=== PATIENT | male | born 1985 | race Caucasian/White ===

== ENCOUNTER 2022-11-22 21:05 | Day surgery (SDC) | payer BC, SELFPAY ==
[2022-11-22 21:15] VITALS: BP 130/91; PULSE 87; RESP 18; TEMP 36.8; O2SAT 99; BMI 26.5
[2022-11-22 21:25] VITALS: O2SAT 98
--- NOTE | 2022-11-22 21:31 | CRLHL7_ITS ---
For Patients: As a result of the Century Cures Act, medical imaging exams and procedure reports are released immediately into your electronic medical record. You may view this report before your referring provider. If you have questions, please contact your health care provider. INDICATION: Right lower quadrant pain. Contrast allergy. CT ABDOMEN AND PELVIS WITHOUT CONTRAST TECHNIQUE: Multidetector CT imaging was performed through the abdomen and pelvis without intravenous contrast administration. Coronal and sagittal reconstructions were generated. COMPARISON: None. FINDINGS: Lower chest: Lung bases are clear. Liver: Diffuse fatty infiltration of the liver. Gallbladder and bile ducts: No gallbladder wall thickening or calcified gallstones. No biliary dilation identified. Pancreas: Unremarkable. Spleen: Normal. Adrenals: No nodules or masses. Kidneys, ureters, and urinary bladder: No urinary tract stones identified. No hydronephrosis. Wall prominence of the urinary bladder due to nondistention. No bladder mass or definite pathologic wall thickening. Gastrointestinal tract: Normal caliber bowel without wall thickening or obstruction. Prominent appendix measuring up to 9 millimeters in diameter with a suggestion of subtle periappendiceal fat stranding, suspicious for early appendicitis. Vascular structures: Normal for age. Peritoneum: No free air, abscess, or significant free fluid. Lymph nodes: No pathologically enlarged nodes identified. Reproductive organs: No pelvic masses. Surgical clips in the upper scrotum. Bones: Normal for age. IMPRESSION: 1. Probable early appendicitis. Clinical correlation is recommended. No evidence of appendiceal perforation or abscess. 2. Fatty infiltration of the liver. MILLICENT GROVE MD [employer] Dictated by Raffaele Grove MD @ 11/22/2022 11:02:22 PM Please note that all CT scans at this facility use dose modulation, iterative reconstruction, and/or weight-based dosing when appropriate to reduce radiation dose to as low as reasonably achievable. Dictated by: Raffaele rGove MD @ 11/22/2022 23:03:21 (Electronically Signed)
--- NOTE | 2022-11-22 21:32 | ED_ITS ---
HPI - General Adult General Time Seen by Provider: 21:32 Date Seen: 11/22/22 Chief complaint: Abdominal Pain Stated complaint: abdominal pain Time Seen by Provider: 11/22/22 21:21 Source: patient Mode of arrival: ambulatory Limitations: no limitations History of Present Illness HPI narrative: 37-year-old male who comes in today with right lower quadrant abdominal pain this evening. Onset at rest. No nausea, vomiting, diarrhea. No urinary symptoms. Does not radiate into the flank. Has not taken anything for this. Last ate around lunchtime, last fluid intake a couple hours ago. No prior surgeries. Related Data Home Medications Medication Instructions Recorded Confirmed omeprazole 20 mg capsule,delayed 20 mg PO DAILY 11/22/22 11/22/22 release Allergies Allergy/AdvReac Type Severity Reaction Status Date / Time amoxicillin [From Augmentin] Allergy Intermediate Hives Verified 11/22/22 21:20 clavulanic acid Allergy Intermediate Hives Verified 11/22/22 21:20 [From Augmentin] Iodinated Contrast Media Allergy Mild Sneezing Verified 11/22/22 21:20 Review of Systems Status of ROS: Reports: 10 or more systems reviewed and unremarkable except as noted in History and below [facility] Medical History GERD (gastroesophageal reflux disease) Surgical History No significant past surgical history S/P vasectomy Social History Narrative: Patient denies smoking and drinking alcohol. He is a recovering alcoholic. 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 Smoking Status: Never smoker Do you use any of these nicotine containing products: None Second hand tobacco smoke exposure: No How often do you have a drink containing alcohol: never How often do you have six or more drinks on one occasion: Never AUDIT-C Alcohol total score: 0 Non-prescribed substance use: denies use Exam Narrative: Exam Narrative: General: Well-developed and well-nourished, no acute distress Head: Atraumatic and normocephalic Eyes: Pupils are equal reactive, extraocular motions intact, conjunctiva clear ENT: External nose and ears are normal, posterior pharynx without erythema or exudate Neck: No midline cervical tenderness, full spontaneous range of motion the neck, trachea midline, no adenopathy Heart: Regular rate and rhythm no murmurs or thrills Lungs: Clear to auscultation bilaterally without wheezes or crackles Abdomen: Soft, right lower quadrant tenderness, nondistended with active bowel sounds Musculoskeletal: No tenderness, deformity, or edema Neurologic: Awake, alert, and oriented x3, no gross focal neurologic deficits, cranial nerves intact as tested Psych: Mood and affect are appropriate Skin: No rashes Const: Vital Signs, click to edit/add: Vital Signs - 24 hr 11/22/22 21:15 11/22/22 22:02 11/22/22 21:25 Temperature 98.2 F Pulse Rate 96 Pulse Rate [Right Pulse Oximeter] 87 Respiratory Rate 18 16 Blood Pressure 136/90 H Blood Pressure [Ri ght Upper Arm] 130/91 H Pulse Oximetry 99 97 98 Oxygen Delivery Me thod Room Air 11/22/22 22:32 11/22/22 23:02 11/22/22 23:32 Temperature Pulse Rate 95 89 94 Pulse Rate [Right Pulse Oximeter] Respiratory Rate 16 16 16 Blood Pressure 134/94 H 134/87 137/92 H Blood Pressure [Ri ght Upper Arm] Pulse Oximetry 94 96 94 Oxygen Delivery Me thod Course Course Hospital Course: Patient seen and examined, prior records reviewed. Differential diagnosis includes but not limited to acute appendicitis, abdominal wall pain, colitis, cecal diverticulum, gastroenteritis. Patient with right lower quadrant pain, tenderness on exam. Symptoms are most consistent with acute appendicitis, labs and CT scan ordered. Patient declines pain medication at this time. Reevaluation(s) Reevaluation #1: Labs independently interpreted by me demonstrate leukocytosis, urinalysis with ketones but no evidence for infection, basic panel is reassuring. CT scan independently interpreted by me demonstrates a mildly dilated appendix with some mild periappendiceal inflammation consistent with acute appendicitis, radiology interpretation agreed. Contacted Dr. Carr, General surgery to discuss and waiting for call back Time: 23:12 Reevaluation #2: Patient seen by Dr. Carr the department with plan to go to OR. Time: 00:05 Vital Signs Vital signs: Initial Vital Signs Temperature 98.2 F 11/22/22 21:15 Temperature Source Temporal Artery Scan 11/22/22 21:15 Pulse Rate 87 11/22/22 21:15 Respiratory Rate 18 11/22/22 21:15 Blood Pressure 130/91 H 11/22/22 21:15 Blood Pressure Mean 104 11/22/22 21:15 Blood Pressure Position Sitting 11/22/22 21:15 Pulse Oximetry 99 11/22/22 21:15 Oxygen Delivery Method 11/22/22 21:15 Vital Signs Temperature 98.2 F 11/22/22 21:15 Pulse Rate 87 11/22/22 21:15 Respiratory Rate 18 11/22/22 21:15 Blood Pressure 130/91 H 11/22/22 21:15 Pulse Oximetry 99 11/22/22 21:15 Oxygen Delivery Method 11/22/22 21:15 Temperature 98.2 F 11/22/22 21:15 Pulse Rate 94 11/22/22 23:32 Respiratory Rate 16 11/22/22 23:32 Blood Pressure 137/92 H 11/22/22 23:32 Pulse Oximetry 94 11/22/22 23:32 Oxygen Delivery Method 11/22/22 21:15 Medical Decision Making Medical Records Medical records reviewed: Yes I reviewed the patient's medical records Lab Data Lab results reviewed: Yes I reviewed the patient's lab results Labs: Lab Results 11/22/22 11/22/22 11/22/22 Range/Units 21:15 21:15 21:17 WBC 13.38 H (4.50-11.00) K/uL RBC 5.24 (4.30-5.90) m/uL Hgb 15.7 (13.5-17.5) gm/dL Hct 45.3 (37.0-53.0) % MCV 87 (80-100) fL MCH 30 (26-34) pg MCHC 35 (32-36) gm/dL RDW Coeff of Gurvinder 12.5 (11.5-15.5) % Plt Count 259 (140-440) K/uL Neut % (Auto) 70.8 (42.0-72.0) % Lymph % (Auto) 19.8 L (20-44) % [place] % (Auto) 7.0 (0.0-11.0) % Eos % (Auto) 1.3 (0.0-7.0) % Baso % (Auto) 0.4 (0.0-3.0) % Neut # (Auto) 9.50 H (1.7-7.0) K/uL Lymph # (Auto) 2.60 (0.90-2.90) K/uL [place] # (Auto) 0.90 (0.00-0.90) K/UL Eos # (Auto) 0.20 (0.00-0.50) K/uL Baso # (Auto) 0.10 (0.00-0.30) K/uL Sodium 137 (135-149) mmol/L Potassium 3.5 L (3.6-5.1) mmol/L Chloride 102 (96-114) mmol/L Carbon Dioxide 26 (20-32) mmol/L BUN 10 (5-24) mg/dL Creatinine 0.9 (0.5-1.5) mg/dL Estimated Creat Clear 122.01 Estimated GFR 114 ml/min Glucose 107 (60-115) mg/dL Calcium 9.1 (8.4-10.6) mg/dL Urine Color (Yellow) Urine Appearance (Clear) Urine pH (5.0-8.5) Ur Specific [place] (1.000-1.030) Urine Protein (Negative) Urine Glucose (UA) (Negative) Urine Ketones (Negative) Urine Blood (Negative) Urine Nitrite (Negative) Urine Bilirubin (Negative) Urine Urobilinogen (0.2-1.0) Ur Leukocyte Esterase (Negative) Urine RBC (0-2) Urine WBC (0-5) Ur Squamous Epith Cells (None-Few) Urine Bacteria (None) SARS-CoV-2 (PCR) Negative SARS-CoV-2 (Negative) 11/22/22 Range/Units 21:32 WBC (4.50-11.00) K/uL RBC (4.30-5.90) m/uL Hgb (13.5-17.5) gm/dL Hct (37.0-53.0) % MCV (80-100) fL MCH (26-34) pg MCHC (32-36) gm/dL RDW Coeff of Gurvinder (11.5-15.5) % Plt Count (140-440) K/uL Neut % (Auto) (42.0-72.0) % Lymph % (Auto) (20-44) % [place] % (Auto) (0.0-11.0) % Eos % (Auto) (0.0-7.0) % Baso % (Auto) (0.0-3.0) % Neut # (Auto) (1.7-7.0) K/uL Lymph # (Auto) (0.90-2.90) K/uL [place] # (Auto) (0.00-0.90) K/UL Eos # (Auto) (0.00-0.50) K/uL Baso # (Auto) (0.00-0.30) K/uL Sodium (135-149) mmol/L Potassium (3.6-5.1) mmol/L Chloride (96-114) mmol/L Carbon Dioxide (20-32) mmol/L BUN (5-24) mg/dL Creatinine (0.5-1.5) mg/dL Estimated Creat Clear Estimated GFR ml/min Glucose (60-115) mg/dL Calcium (8.4-10.6) mg/dL Urine Color Yellow (Yellow) Urine Appearance Clear (Clear) Urine pH 6.0 (5.0-8.5) Ur Specific [place] >= 1.030 (1.000-1.030) Urine Protein 1+ A (Negative) Urine Glucose (UA) Negative (Negative) Urine Ketones 2+ A (Negative) Urine Blood Negative (Negative) Urine Nitrite Negative (Negative) Urine Bilirubin 1+ A (Negative) Urine Urobilinogen 0.2 (0.2-1.0) Ur Leukocyte Esterase Negative (Negative) Urine RBC 0-2 (0-2) Urine WBC 2-5 (0-5) Ur Squamous Epith Cells None (None-Few) Urine Bacteria None (None) SARS-CoV-2 (PCR) (Negative) Discharge Plan Discharge Clinical Impression: Acute appendicitis Patient Disposition: XFER to OR Condition: Stable Prescriptions: No Action omeprazole 20 mg capsule,delayed release(DR/EC) 20 mg PO DAILY
[2022-11-22 21:48] LABS: Appearance Urine Clear (Clear); Bilirubin Urine 1+ (Negative); Blood Urine Negative (Negative); Color Urine Yellow (Yellow); Glucose Urine Negative (Negative); Ketones Urine 2+ (Negative); Leukocyte Esterase Urine Negative (Negative); Nitrite Urine Negative (Negative); Protein Urine 1+ (Negative); Specific Gravity Urine >= 1.030 (1.000-1.030); Urobilinogen Urine 0.2 (0.2-1.0)
[2022-11-22 21:57] LABS: RBC Urine 0-2 (0-2)
[2022-11-22 22:02] VITALS: BP 136/90; PULSE 96; RESP 16; O2SAT 97
[2022-11-22 22:10] LABS: SARS PCR* Negative SARS-CoV-2 (Negative)
[2022-11-22 22:25] LABS: Chloride* 102 mmol/L (96-114)
[2022-11-22] MEDS: 0.9 % SODIUM CHLORIDE 1000 ml 1,000 ML IV (22:25)
[2022-11-22 22:26] LABS: Potassium* 3.5 mmol/L (3.6-5.1); Sodium* 137 mmol/L (135-149)
[2022-11-22 22:27] LABS: Basophils Percent Auto 0.4 % (0.0-3.0); Eosinophils Percent Auto 1.3 % (0.0-7.0); Hematocrit 45.3 % (37.0-53.0); Hemoglobin* 15.7 gm/dL (13.5-17.5); Immature Granulocytes Pct Auto 0.7 %; Lymphocytes Percent Auto 19.8 % (20-44); Mean Corpuscular HGB Conc 35 gm/dL (32-36); Mean Corpuscular Hemoglobin 30 pg (26-34); Mean Corpuscular Volume 87 fL (80-100); Neutrophils Percent Auto 70.8 % (42.0-72.0); Platelet Count* 259 K/uL (140-440); RDW Coefficient of Variation % 12.5 % (11.5-15.5); Red Blood Count 5.24 m/uL (4.30-5.90); White Blood Count* 13.38 K/uL (4.50-11.00)
[2022-11-22 22:28] LABS: Creatinine* 0.9 mg/dL (0.5-1.5); Est. Creatinine Clearance* 122.01; Estimated Glomerular Filt Rate 114 ml/min
[2022-11-22 22:29] LABS: Blood Urea Nitrogen* 10 mg/dL (5-24); Calcium* 9.1 mg/dL (8.4-10.6); Carbon Dioxide* 26 mmol/L (20-32); Glucose* 107 mg/dL (60-115)
[2022-11-22 22:30] LABS: Slide Review Reflex No
[2022-11-22 22:32] VITALS: BP 134/94; PULSE 95; RESP 16; O2SAT 94
[2022-11-22 23:02] VITALS: BP 134/87; PULSE 89; RESP 16; O2SAT 96
[2022-11-22 23:32] VITALS: BP 137/92; PULSE 94; RESP 16; O2SAT 94
[2022-11-23] VITALS (20 sets, daily range): BP systolic 92–149; BP diastolic 67–109; PULSE 70–115; RESP 13–18; TEMP 36.4–37; O2SAT 93–99
--- NOTE | 2022-11-23 00:08 | PM.GSHP ---
History of Present Illness History of Present Illness Date Seen: 11/23/22 Chief complaint: abdominal pain Narrative: Jordi Thomason is a 37 year old male presented to emergency room with right lower quadrant pain that started today. The pain was described as constant and achy. Patient states that he was not feeling well yesterday and had body aches. Today he all of a sudden developed pain in the right lower quadrant around 5:00 p.m.. He had some nausea associated with pain but no vomiting. He had a bowel movement today. I reviewed patient's chart. He was found to have an elevated WBC of 13. An abdominal CT was obtained without contrast due to patient's allergy to IV contrast and that showed slightly dilated appendix with periappendiceal inflammation suspicious for an early appendicitis. There was no dilated large or small intestine. Review of Systems Narrative: General: no fevers HENT: no problems swallowing CV: no shortness of breath Resp: no cough GI: See above Skin: no new rashes Musculoskeletal: no back pain Psyche: no depression, no anxiety PFSH PFSH Medical History GERD (gastroesophageal reflux disease) Surgical History No significant past surgical history S/P vasectomy Social History Narrative: Patient denies smoking and drinking alcohol. He is a recovering alcoholic. 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 Smoking Status: Never smoker Do you use any of these nicotine containing products: None Second hand tobacco smoke exposure: No How often do you have a drink containing alcohol: never How often do you have six or more drinks on one occasion: Never AUDIT-C Alcohol total score: 0 Non-prescribed substance use: denies use Meds Home Medications and Allergies Home Medications Medication Instructions Recorded Confirmed Type omeprazole 20 mg capsule,delayed 20 mg PO DAILY 11/22/22 11/22/22 History release Allergies Allergy/AdvReac Type Severity Reaction Status Date / Time amoxicillin [From Augmentin] Allergy Intermediate Hives Verified 11/22/22 21:20 clavulanic acid Allergy Intermediate Hives Verified 11/22/22 21:20 [From Augmentin] Iodinated Contrast Media Allergy Mild Sneezing Verified 11/22/22 21:20 Exam Narrative: Exam Narrative: General appearance: Alert, cooperative, and in no distress Pulmonary: Chest symmetric, lungs clear bilaterally Cardiovascular Heart: Regular rate and rhythm, S1, S2, no murmurs/rubs/gallops Gastrointestinal Abdominal: soft, not distended, tender to palpation in the right lower quadrant with positive Rovsing's sign. Patient also has rebound tenderness in the right lower quadrant. Skin: Normal skin color, texture, and turgor. No rashes or lesions. Psychiatric: Alert, cooperative, normal affect. Const: Vital Signs, click to edit/add: Vital Signs - 24 hr 11/22/22 21:15 11/22/22 22:02 11/22/22 21:25 Temperature 98.2 F Pulse Rate 96 Pulse Rate [Right Pulse Oximeter] 87 Respiratory Rate 18 16 Blood Pressure 136/90 H Blood Pressure [Ri ght Upper Arm] 130/91 H Pulse Oximetry 99 97 98 Oxygen Delivery Me thod Room Air 11/22/22 22:32 11/22/22 23:02 11/22/22 23:32 Temperature Pulse Rate 95 89 94 Pulse Rate [Right Pulse Oximeter] Respiratory Rate 16 16 16 Blood Pressure 134/94 H 134/87 137/92 H Blood Pressure [Ri ght Upper Arm] Pulse Oximetry 94 96 94 Oxygen Delivery Me thod Assessment and Plan Assessment and plan (1) Acute appendicitis: Status: Acute Plan 37-year-old male presents with an early acute appendicitis. I discussed with the patient his laboratory and imaging findings. Patient's CT showed inflamed appendix with no periappendiceal abscess. On clinical exam he has tenderness to palpation with rebound tenderness in right lower quadrant concerning for acute appendicitis. Given patient's clinical history, I recommended to proceed with laparoscopic appendectomy. The procedure was discussed in detail. The risks associated the procedure including infection, bleeding, and injury to intra-abdominal organs were all discussed with the patient, and he agreed to proceed.
[2022-11-23] MEDS: HYDROmorphone 0.5 mg/0.5 ml inj IVP (00:44)
[2022-11-23] MEDS: LACTATED RINGERS 1000 ML 1,000 ML 100 ML IV ×2 (00:48→02:52)
[2022-11-23] MEDS: CEFAZOLIN 2 GM INJ IVP (00:55)
[2022-11-23] MEDS: BUPIVACAINE 0.25% 30 ML INJECTION (01:30)
--- NOTE | 2022-11-23 01:44 | P.GSOP_ITS ---
Operative Note Date of procedure: 11/23/22 Pre-op diagnosis: 1. Acute appendicitis. Post-op diagnosis: Same Type of Procedure: 1. Laparoscopic appendectomy. Indications: 37-year-old male presented to emergency room with sudden onset of right lower quadrant pain that was persistent and not resolving. The pain started today but yesterday patient was not feeling well. Patient had nausea associated with pain. In the emergency room he was found to have an elevated WBC of 13. An abdominal CT was obtained that showed inflammation around the appendix suspicious for an early acute appendicitis. On clinical exam patient had tenderness to palpation in the right lower quadrant with rebound tenderness and positive Rovsing sign. Given patient's clinical history and his physical exam, acute appendicitis was suspected, and laparoscopic appendectomy was recommended. The procedure was discussed in detail. The risks associated the procedure including infection, bleeding, and injury to intra-abdominal organs were all discussed with the patient, he agreed to proceed. Procedure Description: After discussing the risks and benefits of the procedure, the patient signed informed consent.? The operative site was marked and the patient was brought to the operating room and placed on the operating table in supine position.? Care was taken to pad the patient's pressure points.?? The patient was then intubated by anesthesia.?? The operative site was then prepped and draped in the usual sterile fashion.? A time-out was then performed. A 5-mm laparoscopy port was placed in the left upper quadrant guided by a 5-mm laparoscope placed into a translucent trochar. Passage through the layers of the abdominal wall was visualized with the laparoscope. A pneumoperitoneum was established. A 30-degree 5-mm laparoscope was advanced into the abdomen. The abdomen was briefly surveyed, and there was no evidence of diffuse peritonitis. A 12-mm port and a 5-mm port were placed in the left low quadrant and suprapubically, respectively, under direct visualization by laparoscope. Left upper quadrant entrance port was then examined intraabdominally by placing the camera through the left lower quadrant port and no intraabdominal injury was seen. The patient was placed in Trendelenburg position, allowing the abdominal c ontents to shift cephalad. The small bowel was moved toward the midline in the abdomen and this allowed for identification of the appendix. Appendiceal mesentery was slightly edematous. The appendiceal base was injected with minimal inflammation. The appendix was grasped and dissected from the peritoneum using Harmonic scalpel. Appendiceal mesentery was divided with Harmonic scalpel. There was no definite appendiceal artery seen. When the appendiceal base was skeletonized with Harmonic scalpel, a vascular load Endo-CAREY stapler was advanced through the 12-mm port into the abdomen and appendix was stapled off at its base. The appendix was then placed in an endoscopic retrieval bag and extracted from the abdomen through the 12-mm port. The abdomen was surveyed for hemostasis. Minimal bleeding was noted from the appendiceal base staple line and that was controlled with a single 5 mm clip. The 12-mm port was withdrawn and the fascial defect was closed with 0-0 Vicryl stitch using Asher Shayy needle under direct visualization. The 5-mm port was removed under direct visualization. The left upper quadrant port was used to evacuate the pneumoperitoneum and then withdrawn. The skin incisions were closed with 4-0 monocryl. Steri-Strips were applied over the incisions. All counts were correct at the end of the case. The patient tolerated this procedure well and was transferred to PACU in stable condition. Anesthesia: GETA Surgeon: Darrius Carr MD Estimated blood loss (mL): 5 Specimen: Appendix Condition: stable Disposition: PACU
--- NOTE | 2022-11-23 01:48 | W.ANESCHARGE ---
Anesthesia Charges Start Date/Time Anesthesia Start Date: 11/23/22 Anesthesia Start Time: 00:48 Stop Date/Time Anesthesia Stop Date: 11/23/22 Anesthesia Stop Time: 01:45 Summary Emergency: [employer]
[2022-11-23] MEDS: ACETAMINOPHEN 325 MG TABLET 650 MG PO ×2 (02:55→09:25)
[2022-11-23] MEDS: KETOROLAC 15 MG/ML inj IVP ×2 (04:09→10:04)
--- NOTE | 2022-11-23 06:55 | PC.NURSE ---
Pt is alert and oriented x3. Pt bowel sounds are hypoactive in all 4 quadrants. Pt has 3 LAP sites that are all CDI. Pt reported 4/10 pain in abdomen, PRN Tylenol given, when checking back with pt, pt reported 7/10 pain with facial grimacing and wincing, pain managed with PRN Ketorolac.??Pt had intermittent sleep throughout the night due to pain and frequent vitals, pt was pleasant and cooperative. Family at bedside. ?
--- NOTE | 2022-11-23 08:50 | PM.DS1 ---
DS: Providers Provider Date Seen: 11/23/22 Primary care physician: Not a Local Provider Attending Physician on discharge: Darrius Carr MD DS: Diagnosis Discharge Diagnosis (1) Acute appendicitis: Status: Acute (2) S/P laparoscopic appendectomy: Status: Acute Problem details: Patient did well postoperatively after his laparoscopic appendectomy. On the day of discharge she was doing well. His pain was controlled with pain medications. He urinated. DS: Summary Hospital Course Hospital Course: Patient seen and examined, prior records reviewed. Differential diagnosis includes but not limited to acute appendicitis, abdominal wall pain, colitis, cecal diverticulum, gastroenteritis. Patient with right lower quadrant pain, tenderness on exam. Symptoms are most consistent with acute appendicitis, labs and CT scan ordered. Patient declines pain medication at this time. Time Spent with Patient Time attestation: Total time spent providing and/or coordinating discharge services: Exam Narrative: Exam Narrative: Abdomen: Abdomen is soft, not distended Minimally tender to palpation in the right lower quadrant and left lower quadrant, the Steri-Strips are over the laparoscopic incisions Const: Vital Signs, click to edit/add: Vital Signs - 24 hr 11/22/22 21:15 11/22/22 22:02 11/22/22 21:25 Temperature 98.2 F Pulse Rate 96 Pulse Rate [Pulse Oximeter] Pulse Rate [Right Pulse Oximeter] 87 Respiratory Rate 18 16 Blood Pressure 136/90 H Blood Pressure [Ri ght Arm] Blood Pressure [Ri ght Upper Arm] 130/91 H Pulse Oximetry 99 97 98 Oxygen Delivery Me thod Room Air Oxygen Flow Rate 11/22/22 22:32 11/22/22 23:02 11/22/22 23:32 Temperature Pulse Rate 95 89 94 Pulse Rate [Pulse Oximeter] Pulse Rate [Right Pulse Oximeter] Respiratory Rate 16 16 16 Blood Pressure 134/94 H 134/87 137/92 H Blood Pressure [Ri ght Arm] Blood Pressure [Ri ght Upper Arm] Pulse Oximetry 94 96 94 Oxygen Delivery Me thod Oxygen Flow Rate 11/23/22 00:02 11/23/22 00:31 11/23/22 01:36 Temperature 98.2 F Pulse Rate 101 H 99 Pulse Rate [Pulse Oximeter] Pulse Rate [Right Pulse Oximeter] 87 Respiratory Rate 16 16 16 Blood Pressure 149/109 H 148/92 H Blood Pressure [Ri ght Arm] Blood Pressure [Ri ght Upper Arm] 130/91 H Pulse Oximetry 97 97 Oxygen Delivery Me thod Oxygen Flow Rate 11/23/22 01:44 11/23/22 01:50 11/23/22 01:55 Temperature 97.7 F Pulse Rate 90 100 90 Pulse Rate [Pulse Oximeter] Pulse Rate [Right Pulse Oximeter] Respiratory Rate 14 13 14 Blood Pressure 135/92 H 117/82 122/85 Blood Pressure [Ri ght Arm] Blood Pressure [Ri ght Upper Arm] Pulse Oximetry 96 99 95 Oxygen Delivery Me thod Nasal Cannula Oxygen Flow Rate 2 11/23/22 02:00 11/23/22 02:05 11/23/22 02:09 Temperature 98.4 F Pulse Rate 115 H 92 93 Pulse Rate [Pulse Oximeter] Pulse Rate [Right Pulse Oximeter] Respiratory Rate 16 18 16 Blood Pressure 130/90 H 124/76 121/95 H Blood Pressure [Ri ght Arm] Blood Pressure [Ri ght Upper Arm] Pulse Oximetry 93 98 93 Oxygen Delivery Me thod Room Air Oxygen Flow Rate 11/23/22 02:20 11/23/22 02:25 11/23/22 02:30 Temperature 98.1 F 98.1 F 97.6 F Pulse Rate 90 Pulse Rate [Pulse Oximeter] 86 82 Pulse Rate [Right Pulse Oximeter] Respiratory Rate 16 16 16 Blood Pressure Blood Pressure [Ri ght Arm] 109/67 111/87 110/67 Blood Pressure [Ri ght Upper Arm] Pulse Oximetry 98 97 Oxygen Delivery Me thod Nasal Cannula Nasal Cannula Nasal Cannula Oxygen Flow Rate 2 2 2 11/23/22 02:45 11/23/22 03:00 11/23/22 03:30 Temperature 98.2 F 98.1 F 98.6 F Pulse Rate Pulse Rate [Pulse Oximeter] 98 94 91 Pulse Rate [Right Pulse Oximeter] Respiratory Rate 14 16 18 Blood Pressure Blood Pressure [Ri ght Arm] 100/73 107/73 105/70 Blood Pressure [Ri ght Upper Arm] Pulse Oximetry 93 94 96 Oxygen Delivery Me thod Nasal Cannula Room Air Nasal Cannula Oxygen Flow Rate 2 0.5 11/23/22 04:00 11/23/22 05:00 11/23/22 06:00 Temperature Pulse Rate Pulse Rate [Pulse Oximeter] 87 70 72 Pulse Rate [Right Pulse Oximeter] Respiratory Rate 16 16 Blood Pressure Blood Pressure [Ri ght Arm] 105/71 104/73 92/68 Blood Pressure [Ri ght Upper Arm] Pulse Oximetry 95 96 96 Oxygen Delivery Me thod Nasal Cannula Nasal Cannula Nasal Cannula Oxygen Flow Rate 0.5 0.5 0.5 11/23/22 07:00 Temperature 97.7 F Pulse Rate Pulse Rate [Pulse Oximeter] 79 Pulse Rate [Right Pulse Oximeter] Respiratory Rate 16 Blood Pressure Blood Pressure [Ri ght Arm] 100/72 Blood Pressure [Ri ght Upper Arm] Pulse Oximetry 97 Oxygen Delivery Me thod Nasal Cannula Oxygen Flow Rate 0.5 DS: Data Data Completed and Pending Labs on day of discharge: Labs from last 24 hours 11/22/22 11/22/22 11/22/22 21:32 21:17 21:15 WBC RBC Hgb Hct MCV MCH MCHC RDW Coeff of Gurvinder Plt Count Neut % (Auto) Lymph % (Auto) [place] % (Auto) Eos % (Auto) Baso % (Auto) Neut # (Auto) Lymph # (Auto) [place] # (Auto) Eos # (Auto) Baso # (Auto) Sodium 137 Potassium 3.5 L Chloride 102 Carbon Dioxide 26 BUN 10 Creatinine 0.9 Estimated Creat Clear 122.01 Estimated GFR 114 Glucose 107 Calcium 9.1 Urine Color Yellow Urine Appearance Clear Urine pH 6.0 Ur Specific [place] >= 1.030 Urine Protein 1+ A Urine Glucose (UA) Negative Urine Ketones 2+ A Urine Blood Negative Urine Nitrite Negative Urine Bilirubin 1+ A Urine Urobilinogen 0.2 Ur Leukocyte Esterase Negative Urine RBC 0-2 Urine WBC 2-5 Ur Squamous Epith Cells None Urine Bacteria None SARS-CoV-2 (PCR) Negative SARS-CoV-2 11/22/22 21:15 WBC 13.38 H RBC 5.24 Hgb 15.7 Hct 45.3 MCV 87 MCH 30 MCHC 35 RDW Coeff of Gurvinder 12.5 Plt Count 259 Neut % (Auto) 70.8 Lymph % (Auto) 19.8 L [place] % (Auto) 7.0 Eos % (Auto) 1.3 Baso % (Auto) 0.4 Neut # (Auto) 9.50 H Lymph # (Auto) 2.60 [place] # (Auto) 0.90 Eos # (Auto) 0.20 Baso # (Auto) 0.10 Sodium Potassium Chloride Carbon Dioxide BUN Creatinine Estimated Creat Clear Estimated GFR Glucose Calcium Urine Color Urine Appearance Urine pH Ur Specific [place] Urine Protein Urine Glucose (UA) Urine Ketones Urine Blood Urine Nitrite Urine Bilirubin Urine Urobilinogen Ur Leukocyte Esterase Urine RBC Urine WBC Ur Squamous Epith Cells Urine Bacteria SARS-CoV-2 (PCR) Discharge Plan Discharge Disposition: Home, Self-Care Discharging Surgeon: Darrius Carr Follow-Up Appointment: 2 weeks [facility] Prescriptions: New ondansetron 4 mg tablet,disintegrating 4 mg PO Q8H PRN (Reason: nausea and vomiting) Qty: 5 0RF Continued omeprazole 20 mg capsule,delayed release(DR/EC) 20 mg PO DAILY Activity Level: No strenuous activity Activity Detail: No strenuous activity or lifting more than 15-20 lbs for 4-6 weeks. Discharge Diet: Regular Patient Instructions: Surgical Site Infections (DC), General Anesthesia (DC), Laparoscopic Appendectomy (DC) Forms: Work/School Release Follow-up: Darrius Carr MD [Staff Physician] - Discharge Orders: Discharge Order (Routine); Ordered 11/23/22 Ordered By: Darrius Carr
[2022-11-23] MEDS: OMEPRAZOLE 20 MG CAPSULE DR PO (09:25)
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
== END 2022-11-23 11:15 | disposition home or self-care (01) ==
LOC: ED 11-23 00:38 → SS 11-23 00:45 → MEDSURG 11-23 02:38
PROVIDERS: Emergency Provider Family Medicine; Visit Provider Surgery
PROC: 0DTJ4ZZ Resection of Appendix, Percutaneous Endoscopic Approach (ICD-10-PCS; CPT 44970; principal; 2022-11-23 00:45)
DX: K35.80 Unspecified acute appendicitis (principal)
CPT/HCPCS: 44970; 00790; 36415; 74176; 80048; 81001; 85025; 87635; 88304; 94761; 99140; 99285; A9270; J0330; J0690; J1100; J1170; J1200; J1885; J2405; J2704; J3010; J3490; J7030; J7120

== ENCOUNTER 2023-04-03 15:30 | Outpatient (RCR) | payer BC, SELFPAY | END 2023-04-04 09:28 | disposition home or self-care (01) | PROVIDERS: PCP Family Medicine; Visit Provider Family Medicine | DX: S29.012A Strain of muscle and tendon of back wall of thorax, initial encounter (principal); M54.6 Pain in thoracic spine; Z51.89 Encounter for other specified aftercare | CPT/HCPCS: 97110; 97140; 97161 ==

== ENCOUNTER 2023-06-09 06:40 | Outpatient (CLI) | payer BC, SELFPAY ==
--- NOTE | 2023-06-09 07:43 | W.ANESCHARGE ---
Anesthesia Charges Start Date/Time Anesthesia Start Date: 06/09/23 Anesthesia Start Time: 07:20 Stop Date/Time Anesthesia Stop Date: 06/09/23 Anesthesia Stop Time: 07:40
--- NOTE | 2023-06-09 08:08 | W.ANESCHARGE ---
Anesthesia Charges Start Date/Time Anesthesia Start Date: 06/09/23 Anesthesia Start Time: 07:20 Stop Date/Time Anesthesia Stop Date: 06/09/23 Anesthesia Stop Time: 07:40
== END 2023-06-09 06:41 | disposition home or self-care (01) ==
LOC: OP CLINIC 06:40
PROVIDERS: PCP Family Medicine; Visit Provider Internal Medicine
DX: R19.8 Other specified symptoms and signs involving the digestive system and abdomen (principal); K25.9 Gastric ulcer, unspecified as acute or chronic, without hemorrhage or perforation; K21.9 Gastro-esophageal reflux disease without esophagitis
CPT/HCPCS: 00731; 43239; 88305; 88342; J2704

== ENCOUNTER 2024-10-10 08:01 | Outpatient (CLI) | payer OTHER, SELFPAY | END 2024-10-10 08:02 | disposition home or self-care (01) | LOC: RAD 08:03 | PROVIDERS: PCP Family Medicine; Visit Provider Internal Medicine Gastroenterology | DX: K21.9 Gastro-esophageal reflux disease without esophagitis (principal) | CPT/HCPCS: 74246 ==